=== PATIENT | male | born 1960 | race Caucasian/White ===

== ENCOUNTER 2019-03-07 16:05 | Inpatient (IN) | payer SELFPAY ==
[2019-03-07 17:04] LABS: #Basophils 0.1 thou/uL (0.0-0.2); #Eosinphils 0.1 thou/uL (0.0-0.7); #Lymphocytes 2.2 thou/uL (1.20-3.40); #Monocytes 0.8 thou/uL (0.11-0.59); #Neutrophils 9.7 thou/uL (1.40-6.50); %Basophils 0.4 % (0.0-1.0); %Eosinophils 1.1 % (0.0-10.0); %Lymphocytes 17.4 % (21.0-51.0); %Monocytes 6.4 % (0.0-10.0); %Neutrophils 74.8 % (42.0-75.0); Hemoglobin 15.3 g/dL (14.0-18.0); Mean Corpuscular HGB CONC 32.9 g/dL (32.0-36.0); Mean Corpuscular Hemoglobin 28.4 pg (27.0-31.0); Mean Corpuscular Volume 86.3 fL (78.0-98.0); Mean Platelet Volume 8.9 fL (7.4-10.4); Platelet Count 199 thou/uL (130-400); RBC Distribution Width 12.3 % (11.5-14.5); Red Blood Cell (RBC) Count 5.38 mill/uL (4.70-6.10); White Blood Cell (WBC) Count 12.9 thou/uL (4.8-10.8)
[2019-03-07 17:40] LABS: ALT (SGPT) 14 U/L (8-55); AST (SGOT) 15 U/L (5-34); Albumin 4.3 g/dL (3.5-5.0); Alkaline Phosphatase 73 U/L (40-110); Anion Gap 14 mmol/L (10-20); BUN (Urea Nitrogen) 13 mg/dL (8.4-25.7); Bilirubin, Total 0.5 mg/dL (0.2-1.2); Calc. Creatinine Clearance 0 mL/min (70-130); Calcium 9.3 mg/dL (7.8-10.44); Carbon Dioxide 24 mmol/L (22-29); Chloride 105 mmol/L (98-107); Estimated GFR-MDRD 50; Globulin 3.2 g/dL (2.4-3.5); Glucose 88 mg/dL (70-105); Potassium 3.8 mmol/L (3.5-5.1); Protein, Total 7.5 g/dL (6.0-8.3); Sodium 139 mmol/L (136-145)
[2019-03-07] MEDS ORDERED: Piperacillin/Tazobactam 4.5 GM VIAL ONE (18:20)
[2019-03-07] MEDS ORDERED: Ketorolac Tromethamine 30 MG/ML VIAL ONE (18:38)
[2019-03-07 18:43] LABS: Hemoglobin A1c 5.6 % (4.0-6.0)
[2019-03-07 20:09] LABS: Lactic Acid 1.2 mmol/L (0.5-2.2)
[2019-03-07] MEDS ORDERED: hydrALAZINE 20 MG/ML VIAL SLOW IVP PRN (20:56)
[2019-03-07] MEDS: Morphine 4 MG/ML VIAL SLOW IVP PRN ×2 (21:09→23:21)
[2019-03-07] MEDS: Sodium Chloride 0.9% 1,000 ML IV SCH (21:20)
[2019-03-07 21:59] VITALS: BMI 39.6
[2019-03-07] MEDS ORDERED: Piperacillin/Tazobactam 4.5 GM in Sodium Chloride 0.9% 100 ML IVPB SCH (23:59)
[2019-03-08 00:14] LABS: Bacteria/HPF None Seen HPF (None Seen); Bilirubin Negative (Negative); Blood, Urine Negative (Negative); Clarity Clear (Clear); Glucose, Urine (Dipstick) Normal (Negative); Leukocyte Negative Leu/uL (Negative); Nitrite Negative (Negative); Protein, Urine (Dipstick) 20 mg/dL (Neg-Trace); Squamous Epithelial None Seen HPF (0-3); Urobilinogen Normal mg/dL (Less than 2); WBC/HPF 0-3 HPF (0-3)
[2019-03-08] MEDS: Morphine 2 MG/ML SYRINGE SLOW IVP PRN ×4 (04:06→17:28)
[2019-03-08] MEDS: Sodium Chloride 0.9% 1,000 ML IV SCH (06:12)
[2019-03-08] MEDS ORDERED: HYDROmorphone 0.5 MG/0.5 ML SYRINGE ONE ×4 (08:08→12:37)
[2019-03-08] MEDS ORDERED: Fentanyl 100 MCG/2 ML VIAL ONE ×5 (08:08→12:12)
--- NOTE | 2019-03-08 09:03 | HP ---
CHIEF COMPLAINT: Painful growth in groin. HISTORY OF PRESENT ILLNESS: This is a 58-year-old male with a several year history of enlarging growth in both groins with recent increasing pain, drainage, and smell. PAST MEDICAL HISTORY: Morbid obesity. PAST SURGICAL HISTORY: He had a fractured leg that was repaired with screws. MEDICATIONS: No medications. ALLERGIES: HE IS ALLERGIC TO IBUPROFEN. SOCIAL HISTORY: He is . 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 Smokes 1/2 pack per day. Social alcohol. FAMILY HISTORY: Noncontributory. PHYSICAL EXAMINATION: VITAL SIGNS: Temperature 97.4, pulse 59, blood pressure 127/85. GENERAL: Morbidly obese male, lying still, in no apparent distress. HEENT: Unremarkable. LUNGS: Clear. HEART: Regular rate and rhythm. ABDOMEN: Soft, obese, and nontender. He has a 20 x 4 cm growth on the right groin and intermittent islands of condyloma on the left that extended into the perineum and perianal region. There is local cellulitis. It is raised up about 2 cm. EXTREMITIES: Otherwise unremarkable. LABORATORY DATA: White count 12.9, hemoglobin and hematocrit 15 and 46, platelet count 199. Electrolytes; his creatinine is elevated at 1.45, BUN of 13, otherwise normal. ASSESSMENT: Infected extensive perineal condyloma. PLAN: Debridement in OR. CONSENT: I have discussed planned procedure as well as risk of bleeding, infection, and recurrence. He understands and gives informed consent. Job ID: [id number]
[2019-03-08] MEDS ORDERED: Morphine 4 MG/ML VIAL ONE (09:21)
[2019-03-08] MEDS ORDERED: Piperacillin/Tazobactam 3.375 GM VIAL ONE (09:58)
[2019-03-08] MEDS ORDERED: Sodium Chloride 0.9% 100 ML ONE (09:59)
[2019-03-08] MEDS ORDERED: ePHEDrine/0.9% NaCl/PF SYRINGE 50 mg/10 ml ONE (10:02)
[2019-03-08] MEDS ORDERED: Ondansetron PF 4 MG/2 ML Vial ONE (10:02)
[2019-03-08] MEDS ORDERED: Dexamethasone 20 MG/5 ML VIAL ONE (10:02)
[2019-03-08] MEDS ORDERED: PROPOFOL 200 MG/20 ML VIAL ONE (10:02)
[2019-03-08] MEDS ORDERED: Ketorolac Tromethamine 30 MG/ML VIAL ONE (10:02)
[2019-03-08] MEDS ORDERED: Lidocaine 1% PF 5 ML VIAL ONE (10:02)
[2019-03-08] MEDS ORDERED: Rocuronium Bromide 10 MG/ML (10ML VIAL) ONE (10:02)
[2019-03-08] MEDS ORDERED: Silver Sulfadiazine 1% Cream 50 GM JAR TOP SCH (10:30)
[2019-03-08] MEDS ORDERED: HYDROmorphone 2 MG/ML VIAL SLOW IVP PRN (11:02)
[2019-03-08] MEDS ORDERED: Promethazine HCl 25 MG/ML VIAL SLOW IVP PRN (11:02)
[2019-03-08] MEDS ORDERED: Ondansetron HCl/PF 4 MG/2 ML Vial IVP PRN (11:02)
[2019-03-08] MEDS ORDERED: Promethazine HCl 25 MG/ML VIAL IM PRN ×2 (11:02→11:26)
[2019-03-08] MEDS ORDERED: PACU-Morphine 4MG/ML VIAL SLOW IVP PRN (11:02)
[2019-03-08] MEDS ORDERED: Dextrose 50% Abboject 50 ML SYRINGE SLOW IVP PRN (11:26)
[2019-03-08] MEDS ORDERED: hydrALAZINE 20 MG/ML VIAL SLOW IVP PRN (11:26)
[2019-03-08] MEDS ORDERED: Ondansetron PF 4 MG/2 ML Vial IVP PRN (11:26)
[2019-03-08] MEDS ORDERED: Dextrose 5% in Water 1,000 ML IV PRN (11:26)
--- NOTE | 2019-03-08 12:18 | OP ---
DATE OF PROCEDURE: 03/08/2019 PREOPERATIVE DIAGNOSIS: Extensive perineal condyloma with cellulitis. PROCEDURE PERFORMED: Biopsy and fulguration of extensive perineal condyloma. INDICATIONS: A 58-year-old male, who reports several year history of enlarging area of perineal condyloma. He did not seek medical attention. Over the last few weeks, he has had increasing pain, drainage and foul smell from the area. FINDINGS: 21 x 8 cm area of very extensive condyloma, some of which were 2 or 3 cm raised on the right and 13 x 8 cm area of condyloma on the left perineum including perianal, perineum, and scrotal condyloma. DESCRIPTION OF PROCEDURE: After informed consent was obtained, the patient was taken to the operating room and given general endotracheal anesthesia. He was placed in lithotomy position. His perineum was prepped and draped in usual fashion. In order to get exposure, I had to suture his scrotal sac to the anterior abdominal wall to reveal the extent of the disease. There were some very large condylomatous masses, which were excised using the 10 blade and the base were cauterized with electrocautery. These were sent to Pathology for further analysis. Smaller areas were just simply cauterized and scraped sequentially. I just went from posterior to anterior making way to the full extent of these processes. Once this had fully been excised, the area was irrigated with saline and then Silvadene cream was applied to the area and a sterile bandage. The patient tolerated the procedure well, transferred to Recovery in good condition. Job ID: [id number]
[2019-03-08] MEDS: Piperacillin/Tazobactam 3.375 GM in Sodium Chloride 0.9% 100 ML IVPB SCH ×3 (13:16→23:35)
[2019-03-08] MEDS: D5 1/2 NS w/20 mEq KCL 1,000 ML IV SCH ×3 (13:41→21:53)
[2019-03-08] MEDS: Morphine 4 MG/ML VIAL SLOW IVP PRN ×3 (13:42→23:35)
[2019-03-08] MEDS ORDERED: HYDROcodone/Acetaminophen 7.5/325 mg Tablet PO PRN (17:14)
[2019-03-08] MEDS: HYDROcodone/Acetaminophen 7.5/325 mg Tablet PO PRN (17:23)
[2019-03-08] MEDS: Famotidine 20 MG TAB PO SCH (19:36)
[2019-03-08] MEDS: Famotidine/PF 20 mg/2ml Vial SLOW IVP SCH (19:49)
[2019-03-09] MEDS: Morphine 4 MG/ML VIAL SLOW IVP PRN ×9 (01:50→23:47)
[2019-03-09 04:56] LABS: #Lymphocytes 1.4 thou/uL (1.20-3.40); #Monocytes 0.9 thou/uL (0.11-0.59); %Basophils 0.1 % (0.0-1.0); %Eosinophils 0.1 % (0.0-10.0); %Lymphocytes 8.1 % (21.0-51.0); %Monocytes 5.3 % (0.0-10.0); %Neutrophils 86.4 % (42.0-75.0); Hemoglobin 12.9 g/dL (14.0-18.0); Mean Corpuscular HGB CONC 32.3 g/dL (32.0-36.0); Mean Corpuscular Hemoglobin 28.3 pg (27.0-31.0); Mean Corpuscular Volume 87.8 fL (78.0-98.0); Mean Platelet Volume 8.8 fL (7.4-10.4); Platelet Count 161 thou/uL (130-400); RBC Distribution Width 12.2 % (11.5-14.5); Red Blood Cell (RBC) Count 4.54 mill/uL (4.70-6.10); White Blood Cell (WBC) Count 17.4 thou/uL (4.8-10.8)
[2019-03-09 05:15] LABS: Anion Gap 11 mmol/L (10-20); BUN (Urea Nitrogen) 12 mg/dL (8.4-25.7); Calc. Creatinine Clearance 137 mL/min (70-130); Calcium 8.2 mg/dL (7.8-10.44); Carbon Dioxide 21 mmol/L (22-29); Chloride 110 mmol/L (98-107); Estimated GFR-MDRD 69; Glucose 169 mg/dL (70-105); Potassium 4.2 mmol/L (3.5-5.1); Sodium 138 mmol/L (136-145)
[2019-03-09] MEDS: Morphine 2 MG/ML SYRINGE SLOW IVP PRN (05:55)
[2019-03-09] MEDS: D5 1/2 NS w/20 mEq KCL 1,000 ML IV SCH ×2 (05:56→15:57)
[2019-03-09] MEDS: Piperacillin/Tazobactam 3.375 GM in Sodium Chloride 0.9% 100 ML IVPB SCH ×4 (06:29→23:40)
--- NOTE | 2019-03-09 06:51 | PDOC.GSPN ---
Surgery Progress Note: Subj - Subjective Patient reports: voiding w/o difficulty, pain is less Narrative: Pt had no acute events and was afebrile overnight. Pt had intense 10/10 pain post op, and has been receiving norco Q4 which brought pain down to 3/10. Pt had serosanguineous dx from wound site, which required 1 dressing change. Pt has been walking to bathroom to void freely. Surgery Progress Note: Obj - Vital signs Vital signs: Vital Signs - Most Recent Temp Pulse Resp BP Pulse Ox 98.2 F 67 18 121/68 96 03/09/19 03:36 03/09/19 03:36 03/09/19 03:36 03/09/19 03:36 03/09/19 03:36 - Physical Exam General: no distress ENT: normal mucosa Cardiovascular: regular rate and rhythm Respiratory: clear to auscultation Abdomen: soft, non tender, positive bowel sounds Psychiatric: oriented to time, oriented to person, oriented to place Wound: dressing clean,dry,intact, other (according to nurse when she changed the dressing, the wound site is healing appropriately) Surgery Progress Note: Results - Labs Result Diagrams: 03/09/19 04:25 03/09/19 04:25 Lab results: Laboratory Results - last 24 hr Surgery Progress Note: A/P - Problem (1) Condyloma Current Visit: Yes Code(s): A63.0 - ANOGENITAL (VENEREAL) WARTS Status: Acute - Plan Plan: Rusty Mccormick is a 58yo CM who presented to the ED on 03/07 for elective perineal condyloma removal. Today is POD1 and pt is doing well w/ stable vital signs. Pt's WBC is trending up from 12.9 to 17.4 and glucose increased from 88 to 169. Monitor for signs of possible infection. Pt's Hgb decreased from 15.3 pre op to 12.9 post op. Will continue monitoring. Continue managing pt's pain w / norco and incorporate docusate for bowel movement. Pt will walk w/ PT today. If pt continues improving, he may be dc home soon.
[2019-03-09] MEDS: Enoxaparin Sodium 40 MG/0.4 ML SYRINGE SC SCH (08:06)
[2019-03-09] MEDS: Famotidine 20 MG TAB PO SCH ×2 (08:06→19:36)
[2019-03-09] MEDS: Famotidine/PF 20 mg/2ml Vial SLOW IVP SCH ×2 (08:07→20:02)
[2019-03-09] MEDS ORDERED: Silver Sulfadiazine 1% Cream 50 GM JAR TOP SCH (10:30)
[2019-03-09] MEDS: HYDROcodone/Acetaminophen 7.5/325 mg Tablet PO PRN ×2 (11:54→20:34)
--- NOTE | 2019-03-09 13:28 | PRG ---
DATE OF SERVICE: 03/09/2019 SUBJECTIVE: The patient reports quite a bit of pain, but he is up ambulating. His dressing has been changed. OBJECTIVE: VITAL SIGNS: His temperature is 97.7, pulse 63, and blood pressure 144/53. GENERAL: He is awake and alert, there is Silvadene on his wounds, they look fine. LABORATORY DATA: His white count is 17, hemoglobin and hematocrit of 12 and 39, platelet count 161. ASSESSMENT: Cellulitis/extensive condyloma, status post excision. PLAN: Continued wound care. We will discharge when we have home wound care arranged. Job ID: [id number]
[2019-03-09] MEDS: Silver Sulfadiazine 1% Cream 50 GM JAR TOP SCH (20:31)
[2019-03-10] MEDS: D5 1/2 NS w/20 mEq KCL 1,000 ML IV SCH ×2 (01:46→08:15)
[2019-03-10] MEDS: Morphine 4 MG/ML VIAL SLOW IVP PRN ×2 (04:57→10:23)
[2019-03-10] MEDS: Piperacillin/Tazobactam 3.375 GM in Sodium Chloride 0.9% 100 ML IVPB SCH ×2 (04:58→13:17)
[2019-03-10] MEDS: Enoxaparin Sodium 40 MG/0.4 ML SYRINGE SC SCH (08:10)
[2019-03-10] MEDS: Famotidine/PF 20 mg/2ml Vial SLOW IVP SCH (08:11)
[2019-03-10] MEDS: Famotidine 20 MG TAB PO SCH (08:11)
[2019-03-10] MEDS: Silver Sulfadiazine 1% Cream 50 GM JAR TOP SCH (08:12)
[2019-03-10] MEDS: Morphine 2 MG/ML SYRINGE SLOW IVP PRN ×2 (08:17→13:19)
--- NOTE | 2019-03-10 11:24 | DIS ---
DATE OF ADMISSION: 03/07/2019 DATE OF DISCHARGE: 03/10/2019 DISCHARGE DIAGNOSES: 1. Extensive perineal condyloma. 2. Cellulitis. PROCEDURES DURING ADMISSION: Biopsy, fulguration, excision of extensive perineal condyloma. HOSPITAL COURSE: The patient was admitted, taken to the operating room, where he underwent debridement and fulguration of the extensive condyloma. He has been treated with wound care with Silvadene cream. His is a home health nurse and feels comfortable doing this at home. He is being discharged home on hydrocodone, Zofran, and Silvadene cream. He will follow up with me in 2 weeks. Job ID: [id number]
[2019-03-10 12:51] VITALS: BP 159/89; TEMP 97.9
== END 2019-03-10 15:08 | disposition home or self-care (01) | DRG 580 ==
LOC: ERS 16:05 → OBSVTOIN 20:33 → T4-A 20:33 → SJJU 03-08 14:50
PROVIDERS: ADMIT Surgery; ATTEND Surgery
PROC: 0H59XZZ Destruction of Perineum Skin, External Approach (ICD-10-PCS; principal; 2019-03-08)
PROC: 0WBMXZX Excision of Male Perineum, External Approach, Diagnostic (ICD-10-PCS; 2019-03-08)
DX: A63.0 Anogenital (venereal) warts (principal); L03.315 Cellulitis of perineum; E66.01 Morbid (severe) obesity due to excess calories; Z88.1 Allergy status to other antibiotic agents; Z88.8 Allergy status to other drugs, medicaments and biological substances; Z68.39 Body mass index [BMI] 39.0-39.9, adult
CPT/HCPCS: 36415; 36416; 80048; 80053; 81001; 83036; 83605; 85025; 86850; 86900; 86901; 87040; 88305; 96365; 96367; 96375; J1100; J1170; J1650; J1885; J2001; J2270; J2405; J2543; J2704; J3010; J3370; J3490

== ENCOUNTER 2019-03-15 13:04 | Outpatient (CLI) | payer SELFPAY ==
--- NOTE | 2019-03-15 16:47 | HP ---
HISTORY OF PRESENT ILLNESS: Mr. Rusty Augustin is a very pleasant 58-year-old gentleman, who presents to the [facility] for evaluation of wounds of the perineum subsequent to biopsy and fulguration of extensive perineal condyloma on 03/08/[address] Miguel Cardoso. Upon discharge from [facility], the patient was placed on dressing changes of Silvadene cream, which are being performed by the patient's , who is a home health nurse. Also at the time of discharge, the patient was referred to the Wound Center for further evaluation and treatment. The patient states that he has an appointment with Dr. Cardoso on 03/23/2019 at 2:00 p.m. PAST MEDICAL HISTORY: Negative for any chronic medical conditions including diabetes mellitus, hypertension, or coronary artery disease. PAST SURGICAL HISTORY: 1. Surgery for femur fracture as a child. 2. Intraoperative repair of extensive facial laceration. 3. Biopsy, fulguration, and excision of extensive perineal condyloma on 03/08/[address] Miguel Cardoso. MEDICATIONS: Hydrocodone. ALLERGIES: ACETAMINOPHEN AND IBUPROFEN. SOCIAL HISTORY: Social history is significant for tobacco use of approximately 1 pack of cigarettes per day for 30 years. The patient admits to only the rare consumption of alcohol. FAMILY HISTORY: Family history is negative for diabetes mellitus or coronary artery disease. PHYSICAL EXAMINATION: VITAL SIGNS: Temperature 98.1, pulse 80, respirations 19, and blood pressure 175/90. GENERAL: A 58-year-old gentleman, lying on table in examination room, in no acute distress. HEENT: Normocephalic and atraumatic. NECK: No nuchal rigidity. CHEST: Clear to auscultation. CV: Regular rate and rhythm. ABDOMEN: Soft. EXTREMITIES: No clubbing or cyanosis. NEUROLOGIC: Grossly nonfocal perineum. The perineal wound appears to be healing without complications or any signs of infection. No erythema surrounding the wounds is present on exam today. No maceration of the skin surrounding the wounds is present. The perineal wounds are granulating. ASSESSMENT AND PLAN: Perineal wounds subsequent to biopsy and fulguration of extensive perineal condyloma. The patient underwent the preceding procedure by Dr. Miguel Cardoso on 03/08/2019. 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 The patient has a followup appointment with Dr. Cardoso on 03/23/2019. The patient's is to continue dressing changes of Silvadene as per Dr. Cardoso. I will see Mr. Augustin as needed after his evaluation by General Surgery. Job ID: [id number]
== END 2019-03-15 13:05 | disposition home or self-care (01) ==
LOC: WCC 13:04
PROVIDERS: ATTEND Family Medicine
DX: T81.89XA Other complications of procedures, not elsewhere classified, initial encounter (principal)
CPT/HCPCS: 97602; 99203; G0463